=== PATIENT | male | born 1950 | race African-American/Black ===

== ENCOUNTER → 2017-01-31 | Outpatient (CLI) | payer MEDICARE, OTHER ==
[~2017-01-31] MED LIST: BUPR75 PO; DIPH1TAB24 PO; FOLI1 PO; HYDR-305 PO; LEVO25TA9 PO; METO25 PO; OMEP20 PO; PROZ10 PO; RISP.5 PO; TAMS0.4C32 PO; TRAZ-144 PO; UMEC1DIS PO; VALS160T2 PO; VITA1TAB22 PO
== END | disposition home or self-care (01) ==
LOC: RADPV 15:04
PROVIDERS: ATTEND Specialist
DX: M17.12 Unilateral primary osteoarthritis, left knee (principal); R26.2 Difficulty in walking, not elsewhere classified; M51.36 Other intervertebral disc degeneration, lumbar region; M51.37 Other intervertebral disc degeneration, lumbosacral region; M47.816 Spondylosis without myelopathy or radiculopathy, lumbar region; M46.06 Spinal enthesopathy, lumbar region; Z98.890 Other specified postprocedural states; Z96.652 Presence of left artificial knee joint
CPT/HCPCS: 72100

== ENCOUNTER 2017-04-09 11:18 | Day surgery (SDC) | payer MEDICARE, OTHER ==
[~2017-04-09] VITALS: Ht 171.4 cm; Wt 90.5 kg
[~2017-04-09 11:18] MED LIST changes: -BUPR75 PO; -DIPH1TAB24 PO; -FOLI1 PO; -HYDR-305 PO; -LEVO25TA9 PO; +METO1TAB14 PO; -METO25 PO; +NAPR1TAB24 PO; -OMEP20 PO; +OXYC-627 PO; -PROZ10 PO; -RISP.5 PO; +SUCR1TAB PO; +THIA100 PO; +TRAM50TA4 PO; -TRAZ-144 PO; -UMEC1DIS PO; -VITA1TAB22 PO
[2017-04-09] MEDS ORDERED: SODIUM CHLORIDE 0.9% 1,000 ML IV ONE ×2 (11:22→11:30)
[2017-04-09] MEDS ORDERED: SILO4CAP PO (12:05)
[2017-04-09] MEDS ORDERED: CARI350 PO (12:05)
[2017-04-09] MEDS ORDERED: PANT40TA25 PO (12:05)
[2017-04-09] MEDS ORDERED: CHOL200016 PO (12:05)
[2017-04-09] MEDS ORDERED: OXYC-31 PO (12:05)
[2017-04-09] MEDS ORDERED: OXYC36CA PO (12:05)
[2017-04-09] MEDS ORDERED: LORA0.5T2 PO (12:05)
[2017-04-09] MEDS ORDERED: CHL25 PO (12:05)
[2017-04-09] MEDS ORDERED: GABA-531 PO (12:05)
[2017-04-09] MEDS ORDERED: SENN8.6T20 PO (12:05)
[2017-04-09] MEDS ORDERED: IOHEXOL 300 MG/ML 10 ML VIAL ONE (13:09)
[2017-04-09] MEDS ORDERED: TRIAMCINOLONE ACETONIDE 40 MG/ML VIAL ONE (13:09)
[2017-04-09] MEDS ORDERED: BUPIVACAINE HCL/PF 0.75% 10 ML VIAL ONE (13:09)
[2017-04-09] MEDS ORDERED: LIDOCAINE HCL/PF 1% 30 ML VIAL ONE (13:10)
[2017-04-09] MEDS ORDERED: LIDOCAINE HCL/PF 2% 5 ML VIAL ONE (13:10)
[2017-04-09] MEDS ORDERED: FentaNYL CITRATE-PF 100 MCG/2 ML VIAL ONE (13:11)
[2017-04-09] MEDS ORDERED: MIDAZOLAM HCL 2 MG/2 ML VIAL ONE (13:11)
[2017-04-09 13:44] VITALS: BP 140/95
[2017-04-09] MEDS ORDERED: LIDOCAINE HCL/PF 1% 30 ML VIAL INJ ONE (13:51)
[2017-04-09] MEDS ORDERED: FentaNYL CITRATE-PF 100 MCG/2 ML VIAL IVP ONE (13:52)
[2017-04-09] MEDS ORDERED: MIDAZOLAM HCL 2 MG/2 ML VIAL IVP ONE (13:52)
[2017-04-09] MEDS ORDERED: IOHEXOL 300 MG/ML 10 ML VIAL IARTER ONE (14:02)
[2017-04-09] MEDS ORDERED: TRIAMCINOLONE ACETONIDE 40 MG/ML VIAL IARTIC ONE (14:06)
[2017-04-09 14:14] VITALS: BP 120/68
== END 2017-04-09 15:45 | disposition home or self-care (01) ==
LOC: SDS 11:18
PROVIDERS: ATTEND Specialist
DX: M54.12 Radiculopathy, cervical region (principal); J44.9 Chronic obstructive pulmonary disease, unspecified; M54.9 Dorsalgia, unspecified; M54.30 Sciatica, unspecified side; Z87.891 Personal history of nicotine dependence; Z96.652 Presence of left artificial knee joint
CPT/HCPCS: 62321; 93005; J2250; J3010; J3301; J3490; J7030; Q9967

== ENCOUNTER 2020-11-10 19:52 | Emergency (ER) | payer OTHER ==
[~2020-11-10] VITALS: Ht 177.8 cm; Wt 76.4 kg
[~2020-11-10 19:52] MED LIST changes: +CARI350T26 PO; +CHL25 PO; +CHOL200016 PO; +GABA-1181 PO; +LORA-999 PO; -METO1TAB14 PO; -NAPR1TAB24 PO; +OXYC-31 PO; +OXYC36CA PO; +PANT-31 PO; +SENN8.6T20 PO; +SILO4CAP PO; -SUCR1TAB PO; -TAMS0.4C32 PO; -THIA100 PO; -TRAM50TA4 PO; -VALS160T2 PO
[2020-11-10] MEDS ORDERED: LIDOCAINE 5% TRANSDERMAL PATCH TD ONE (22:30)
[2020-11-10] MEDS ORDERED: ACETAMINOPHEN 500 MG TABLET PO ONE (22:30)
[2020-11-10 23:47] VITALS: BP 152/79
== END 2020-11-11 00:35 | disposition home or self-care (01) ==
LOC: EMS 19:55
DX: M25.512 Pain in left shoulder (principal); I10 Essential (primary) hypertension; F32.9 Major depressive disorder, single episode, unspecified; F17.210 Nicotine dependence, cigarettes, uncomplicated
CPT/HCPCS: 99283

== ENCOUNTER 2022-06-25 12:59 | Emergency (ER) | payer MEDICARE, MEDICAID ==
[~2022-06-25] VITALS: Ht 177.8 cm; Wt 68.2 kg
[~2022-06-25 12:59] MED LIST changes: +CARI-493 PO; -CARI350T26 PO
[2022-06-25 15:39] LABS: BASOPHILS % (AUTO) 0.4 % (0.0-2.0); EOSINOPHILS % (AUTO) 3.2 % (1.0-6.0); HEMATOCRIT 42.1 % (41-53); HEMOGLOBIN 13.4 g/dL (13.5-17.5); LYMPHOCYTES # (AUTO) 2.4 K/uL (1.0-4.8); LYMPHOCYTES % (AUTO) 36.1 % (22.0-44.0); MEAN CORPUSCULAR HEMOGLOBIN 25.1 pg (26.0-34.0); MEAN CORPUSCULAR HGB CONC 31.7 G/dL (31.0-37.0); MEAN CORPUSCULAR VOLUME 79 fL (80-100); MONOCYTES # (AUTO) 0.5 K/uL (0.1-1.0); MONOCYTES % (AUTO) 8.3 % (2.0-9.0); NEUTROPHILS # (AUTO) 3.4 K/uL (1.8-7.7); PLATELET COUNT (AUTO) 270 K/uL (150-450); RED BLOOD CELL COUNT(AUTO) 5.33 MIL/uL (4.50-5.90); RED CELL DISTRIBUTION WIDTH 16.7 % (11.5-14.5)
[2022-06-25 15:42] LABS: APPEARANCE,URINE CLEAR (CLEAR); BILIRUBIN,URINE NEGATIVE (NEGATIVE); GLUCOSE, URINE (UA) NEGATIVE (NEGATIVE); KETONES,URINE NEGATIVE (NEGATIVE); LEUKOCYTE ESTERASE ,URINE NEGATIVE (NEGATIVE); NITRATE,URINE NEGATIVE (NEGATIVE); OCCULT BLOOD,URINE NEGATIVE (NEGATIVE); PROTEIN,URINE NEGATIVE (NEGATIVE); SPECIFIC GRAVITIY, URINE 1.018 (1.003-1.030); UROBILINOGEN,URINE <=1.0 mg/dL (<=1.0)
[2022-06-25 15:48] LABS: AMPHET/METH SCREEN,URINE NEGATIVE (NEGATIVE); BARBITURATE SCREEN, URINE NEGATIVE (NEGATIVE); BENZODIAZEPINES SCREEN,URINE NEGATIVE (NEGATIVE); CANNABINOID SCREEN,URINE NEGATIVE (NEGATIVE); COCAINE SCREEN,URINE NEGATIVE (NEGATIVE); METHADONE SCREEN, URINE NEGATIVE (NEGATIVE); OPIATE SCREEN,URINE POSITIVE (NEGATIVE)
[2022-06-25 15:51] LABS: ANION GAP 6 mmol/L (8-16); CALCIUM, TOTAL 9.7 mg/dL (8.8-10.5); CARBON DIOXIDE 28 mmol/L (22-29); CHLORIDE 103 mmol/L (98-107); CREATININE 1.07 mg/dL (0.60-1.30); GLUCOSE,RANDOM 93 mg/dL (70-110); POTASSIUM 4.7 mmol/L (3.5-5.1); SODIUM SERUM 137 mmol/L (136-145); UREA NITROGEN, BLOOD 14 mg/dL (7-18)
[2022-06-25 15:52] LABS: GLOMERULAR FILTR. RATE CALC > 60 mL/min (>60)
[2022-06-25 15:53] LABS: PHENCYCLIDINE SCREEN,URINE NEGATIVE (NEGATIVE)
[2022-06-25 15:57] LABS: ALANINE AMINOTRANSFERASE 22 U/L (12-78); ALBUMIN 3.9 g/dL (3.4-5.0); ALKALINE PHOSPHATASE 102 U/L (46-116); ASPARTATE AMINOTRANSFERASE 11 U/L (15-37); BILIRUBIN,TOTAL 0.2 mg/dL (0.1-1.0); TOTAL PROTEIN, SERUM 8.2 g/dL (6.4-8.2)
[2022-06-25 17:09] VITALS: BP 148/88
== END 2022-06-25 17:26 | disposition home or self-care (01) ==
LOC: EMS 13:10
DX: G47.00 Insomnia, unspecified (principal); F10.20 Alcohol dependence, uncomplicated; F32.A Depression, unspecified; I10 Essential (primary) hypertension; F17.210 Nicotine dependence, cigarettes, uncomplicated
CPT/HCPCS: 99284; 70450; 80053; 85025; 36415; 81003; 80307 ×2; G0480

== ENCOUNTER 2022-10-28 19:25 | Emergency (ER) | payer MEDICARE, MEDICAID ==
[~2022-10-28] VITALS: Ht 167.6 cm; Wt 70.0 kg
[2022-10-28 22:54] LABS: BASOPHILS % (AUTO) 0.3 % (0.0-2.0); EOSINOPHILS % (AUTO) 3.5 % (1.0-6.0); HEMOGLOBIN 12.1 g/dL (13.5-17.5); LYMPHOCYTES # (AUTO) 1.8 K/uL (1.0-4.8); LYMPHOCYTES % (AUTO) 42.3 % (22.0-44.0); MEAN CORPUSCULAR HEMOGLOBIN 23.7 pg (26.0-34.0); MEAN CORPUSCULAR VOLUME 77 fL (80-100); MONOCYTES # (AUTO) 0.3 K/uL (0.1-1.0); MONOCYTES % (AUTO) 7.5 % (2.0-9.0); NEUTROPHILS % (AUTO) 46.4 % (40.0-70.0); PLATELET COUNT (AUTO) 278 K/uL (150-450); RED BLOOD CELL COUNT(AUTO) 5.09 MIL/uL (4.50-5.90)
[2022-10-28 23:01] LABS: ANION GAP 10 mmol/L (8-16); CALCIUM, TOTAL 9.6 mg/dL (8.8-10.5); CARBON DIOXIDE 26 mmol/L (22-29); CHLORIDE 101 mmol/L (98-107); CREATININE 0.96 mg/dL (0.60-1.30); GLOMERULAR FILTR. RATE CALC > 60 mL/min (>60); GLUCOSE,RANDOM 86 mg/dL (70-110); POTASSIUM 4.1 mmol/L (3.5-5.1); SODIUM SERUM 137 mmol/L (136-145); UREA NITROGEN, BLOOD 13 mg/dL (7-18)
[2022-10-28 23:06] LABS: ALANINE AMINOTRANSFERASE 12 U/L (12-78); ALBUMIN 3.9 g/dL (3.4-5.0); ALKALINE PHOSPHATASE 106 U/L (46-116); ASPARTATE AMINOTRANSFERASE 8 U/L (15-37); BILIRUBIN,TOTAL 0.3 mg/dL (0.1-1.0); LIPASE 92 U/L (73-393); TOTAL PROTEIN, SERUM 8.3 g/dL (6.4-8.2)
[2022-10-28] MEDS ORDERED: SODIUM PHOS/SODIUM BIPHOS 133 ML ENEMA PR ONE (23:45)
[2022-10-29 01:10] VITALS: BP 162/82
== END 2022-10-29 01:50 | disposition home or self-care (01) ==
LOC: EMS 19:52
DX: K59.00 Constipation, unspecified (principal); F10.20 Alcohol dependence, uncomplicated; M19.90 Unspecified osteoarthritis, unspecified site; J44.9 Chronic obstructive pulmonary disease, unspecified; F32.A Depression, unspecified; E78.00 Pure hypercholesterolemia, unspecified; I10 Essential (primary) hypertension; F17.210 Nicotine dependence, cigarettes, uncomplicated; Z98.890 Other specified postprocedural states
CPT/HCPCS: 74018; 80053; 83690; 85025; 99284